=== PATIENT | female | born 1960 | race African-American/Black ===

== ENCOUNTER 2016-10-27 09:48 | Emergency (ER) | payer BC ==
[2016-10-27] MEDS ORDERED: Cephalexin 500 MG CAP ONE (10:22)
--- NOTE | 2016-10-27 10:32 | ERRECORD ---
[facility] EMERGENCY RECORD HPI RASH (10:21 LLDO) CHIEF COMPLAINT: Patient presents for evaluation of pruritis, Patient presents for evaluation of rash, Patient presents for evaluation of pt appears to have perhaps a dozen quarter sized insect bites on left lower leg and left arm. several are clearly infected. pt says these have been appearing for more than a week with one or more every morning. sleeps on a mat on the floor, on her left side. very pruritic. HISTORIAN: History provided by patient. LOCATION: Symptoms are generalized. QUALITY: Pain is dull in nature. SEVERITY: Maximum severity of symptoms moderate, Currently symptoms are mild. TIME COURSE: Sudden onset of symptoms, Symptoms are worsening, are constant. ASSOCIATED WITH: Associated with pain. EXACERBATED BY: Patient's condition exacerbated by scratching. RELIEVED BY: Patient's condition relieved by nothing. ROS CONSTITUTIONAL: Negative constitutional review of systems. (10:24 LLDO) EYES: Negative eye review of systems, Historian denies eye pain, denies eye redness, denies eye discharge. (10:28 LLDO) ENT: Negative ears, nose, throat review of systems, Historian denies epistaxis, denies rhinorrhea, denies sinus pain, denies sore throat. (10:28 LLDO) MUSCULOSKELETAL: Negative musculoskeletal review of systems, Historian denies arthralgias, denies back pain, denies injury, denies myalgias, denies neck pain. (10:28 LLDO) SKIN: Historian reports cellulitis, reports pruritis, reports rash, reports skin changes, reports skin lesions. IN HPI. (10:24 LLDO) NEUROLOGIC: Negative neurologic review of systems, Historian denies confusion, denies dizziness, denies focal weakness, denies mental status changes. (10:28 LLDO) HEMO/LYMPHATIC: Normal hematologic/lymphatic system review, Historian denies abnormal blood clotting, denies gum bleeding, denies petechiae. (10:28 LLDO) ALLERGIC/IMMUNOLOGIC: Normal allergy/immunologic system review, Historian denies eczema, denies environmental allergies, denies food allergies. (10:28 LLDO) PSYCHIATRIC: Negative psychiatric review of systems, Historian denies alcohol abuse, denies anxiety, denies depression, denies drug abuse, denies hallucinations. (10:28 LLDO) NOTES: All systems reviewed, negative except as described above. (10:24 LLDO) PAST MEDICAL HISTORY &a-1R&a+25V*p+0X*g0244U*c202B*c15G*c2P*p-0X&a-25V&a+1R Name: Ashlee Ulloa : 1960 F56 MedRec: [id number] AcctNum: [id number] Prepared: Sat Oct 27, 2016 10:30 by Interface Page 1 of 3 pMD [facility] EMERGENCY RECORD MEDICAL HISTORY: Notes: VERIFIED 10-27-16, Past medical history includes history of hypertension, Past medical history includes musculoskeletal disorder, chronic back pain, Notes: HTN, ASTHMA (JUST TAKES METOPROLOL PRN). (09:59 JPER) FEMALE SURGICAL HISTORY: VERIFIED 10-27-16, TUBAL LIGATION, RIGHT ROTATOR CUFF REPAIR. (09:59 JPER) PSYCHIATRIC HISTORY: Notes: DEPRESSION, Notes: depression. (09:59 JPER) SOCIAL HISTORY: Social History includes VERIFIED 10-27-16, Lives at home, with family, Patient drinks socially, rarely, Patient denies drug use, Patient currently uses tobacco, smokes cigarettes, Patient smokes 1/2 packs per day, Patient drinks socially, once a month, Patient denies drug use, Patient currently uses tobacco, smokes cigarettes, Occasional or some day smoker. (09:59 JPER) NOTES: Nursing records reviewed, Agree with nursing records, Medication list reviewed. (10:28 LLDO) KNOWN ALLERGIES codeine sulfate: Reaction: Rash, Severity: Moderate CURRENT MEDICATIONS (10:00 JPER) meTOPROLOL tartrate: TABLET : Strength - 50 mg : ORAL Patient Dose: 2 times a day. VITAL SIGNS (09:56 JPER) VITAL SIGNS: BP: 145/90, Pulse: 80, Resp: 18, Temp: 98.0 (Tympanic), O2 sat: 98 on Room Air, Time: 10/27/2016 09:56. PHYSICAL EXAM CONSTITUTIONAL: Patient afebrile, Pulse normal, Blood pressure, BP ELEVATED, Respiratory rate normal, Patient appears, uncomfortable, Patient appears in pain, in mild pain distress, Patient alert and oriented to person, place and time. (10:25 LLDO) HEAD: Head exam normal, Head exam included findings of head atraumatic, normocephalic. (10:28 LLDO) EYES: Eye exam normal, Eye exam included findings of eyelids normal to inspection, Pupils equally round and reactive to light, Extraocular muscles intact. (10:28 LLDO) ENT: ENT exam normal, Ear exam normal, Nose exam normal. (10:28 LLDO) NECK: Neck exam normal, Neck exam included findings of normal range of motion, Trachea midline, no meningeal signs, no tenderness. (10:28 LLDO) BACK: Back exam normal, Back exam included findings of normal inspection, range of motion normal. (10:28 LLDO) UPPER EXTREMITY: Upper extremity exam normal, Upper extremity exam included findings of inspection normal, Range of motion normal. &a-1R&a+25V*p+0X*w2454A*c202B*c15G*c2P*p-0X&a-25V&a+1R Name: Ashlee Ulloa : 1960 F56 MedRec: [id number] AcctNum: [id number] Prepared: Sat Oct 27, 2016 10:30 by Interface Page 2 of 3 pMD [facility] EMERGENCY RECORD (10:28 LLDO) LOWER EXTREMITY: Lower extremity exam normal, Lower extremity exam included findings of inspection normal, Range of motion normal. (10:28 LLDO) NEURO: Neuro exam normal, Neuro exam findings include patient oriented to person, place and time, Speech normal, [place] coma scale 15. (10:28 LLDO) SKIN: Rash present, SEE HPI. (10:25 LLDO) PSYCHIATRIC: Psychiatric exam normal, Psychiatric exam included findings of patient oriented to person place and time, Normal affect. (10:28 LLDO) MEDICATION ADMINISTRATION SUMMARY Drug Name: Cefanex, Dose Ordered: 500 mg, Route: Oral, Status: Given, Time: 10:18 10/27/2016, Detailed record available in Medication Service section. PROBLEM LIST No recorded problems DIAGNOSIS (10:11 LLDO) FINAL: PRIMARY: infected insect bite/sting. PRESCRIPTION Keflex: CAPSULE (HARD, SOFT, ETC.) : 500 mg : ORAL : Quantity: 1 Unit: cap(s) Route: ORAL Schedule: 3 times a day Dispense: 30 May substitute. Refills: No Refills . (10:13 LLDO) Ultram: TABLET : 50 mg : ORAL : Quantity: 1-2 Unit: tab(s) Route: ORAL Schedule: every 4 hours prn Dispense: 24 Unit: tab(s) May substitute. Refills: 1 POTENTIAL ALLERGY REACTION: 'codeine sulfate [codeine/codeine sulfate]' Override Rationale: Reviewed with patient, pt says can safely take this med. (10:13 LLDO) predniSONE oral: TABLET : 20 mg : ORAL : Quantity: * Unit: Route: ORAL Schedule: See Notes Dispense: 2O May substitute. Refills: No Refills . (10:15 LLDO) NOTES: 3 TABS PER DAY FOR 3 DAYS, THEN 2 TABS PER DAY FOR 3 DAYS, THEN ONE TAB PER DAY UNTIL GONE No Refills. (10:15 LLDO) DISPOSITION PATIENT: Disposition Type: Discharge, Disposition: *Discharge Home. (10:11 LLDO) Patient left the department. (10:28 [place]) Perez: [place]=JEANETTE Atwood, Isa LLDO=MD Nu, Mando &a-1R&a+25V*p+0X*p2223S*c202B*c15G*c2P*p-0X&a-25V&a+1R Name: Ashlee Ulloa : 1960 F56 MedRec: [id number] AcctNum: [id number] Prepared: Chris Oct 27, 2016 10:30 by Interface Page 3 of 3 pMD MTDD
--- NOTE | 2016-10-27 10:38 | PICIS ---
[facility] EMERGENCY RECORD TRIAGE (09:59 JPER) PATIENT: NAME: Ashlee Ulloa, AGE: 56, GENDER: female, : Sat 1960, TIME OF GREET: Sat Oct 27, 2016 09:49, PREFERRED LANGUAGE: Lao, RACE: Black or , ETHNICITY: Not or , ECODE BILLING MAP: [facility], SSN: [id number], Zip Code: [address], KG WEIGHT: 70.76, PHONE: , , , PERSON ID: [id number], PCP: DO Mehta Hillary. (09:59 JPER) COMPLAINT: RASH-LT ARM & LT LEG. (09:59 JPER) ADMISSION: URGENCY: 4 Non Urgent, ADMISSION SOURCE: Home, TRANSPORT: Walk-in, BED: ED -04. (09:59 JPER) ASSESSMENT: Assessment: RASH TO LEFT ARM AND LEG POSS BEDBUG. (09:59 JPER) PAIN: Location ITCHING, Pain is constant, No aggravating factors, No relieving factors. (09:59 JPER) IMMUNIZATIONS: Flu vaccine not up to date, Tetanus immunization up to date, Pneumococcal vaccine not up to date. (09:59 JPER) SIRS SCORING: Heart Rate 55-109 (0), Temp range 96.8-101.1 (0), respiratory rate 12-24 (0), Mental Status altered: no (0). (09:59 JPER) TRIAGE SCREENING: Patient denies suicidal ideation, Patient denies presence of domestic violence. (09:59 JPER) PROVIDERS: TRIAGE NURSE: Isa Atwood RN. (09:59 JPER) VITAL SIGNS: BP 145/90, Pulse 80, Resp 18, Temp 98.0, (Tympanic), O2 Sat 98, on Room Air, Time 10/27/2016 09:56. (09:56 JPER) PREVIOUS VISIT ALLERGIES: codeine sulfate. (09:59 JPER) KNOWN ALLERGIES codeine sulfate: Reaction: Rash, Severity: Moderate CURRENT MEDICATIONS (10:00 JPER) meTOPROLOL tartrate: TABLET : Strength - 50 mg : ORAL Patient Dose: 2 times a day. VITAL SIGNS (09:56 JPER) VITAL SIGNS: BP: 145/90, Pulse: 80, Resp: 18, Temp: 98.0 (Tympanic), O2 sat: 98 on Room Air, Time: 10/27/2016 09:56. NURSING ASSESSMENT: SKIN (10:14 JPER) CONSTITUTIONAL: Patient arrives ambulatory, Gait steady, History obtained from patient, Patient appears comfortable, Patient cooperative, Patient alert, Oriented to person, place and time, Skin warm, Skin dry, Skin normal in color, Mucous membranes pink, Mucous membranes moist, Patient is well-groomed, Patient complains of RASH. PAIN: ITCHING. SKIN: Skin assessment findings include skin warm, Skin dry, Skin normal in color, Inspection findings include lesion(s), to LEFT FOREARM AND LEFT LEG, Description: RED APPROX 1 &a-1R&a+25V*p+0X*v3413R*c202B*c15G*c2P*p-0X&a-25V&a+1R Name: Ashlee Ulloa Paula : 1960 F56 MedRec: [id number] AcctNum: [id number] Prepared: Sat Oct 27, 2016 10:36 by Interface Page 1 of 5 pMD [facility] EMERGENCY RECORD INCH SCATTERED. NOTES: Emotional support needed and given, Patient tolerated procedure well. SAFETY: Side rails up, Cart/Stretcher in lowest position, Family at bedside, Call light within reach, Hospital ID band on. NURSING PROCEDURE: DISCHARGE NOTE (10:25 JPER) DISCHARGE: Patient discharged to home, ambulating without assistance, driving self, unaccompanied, Summary of Care printed/ provided, Patient requested and was provided an electronic copy of Discharge Instructions, Transition record given to patient, Discharge instructions given to patient, Prescriptions given and instructions on side effects given, Above person(s) verbalized understanding of discharge instructions and follow-up care, Patient treated and evaluated by physician. BELONGINGS: Belongings remain with patient, Valuables remain with patient. NOTES: Emotional support needed and given, Patient tolerated procedure well. MEDICATION ADMINISTRATION SUMMARY Drug Name: Cefanex, Dose Ordered: 500 mg, Route: Oral, Status: Given, Time: 10:18 10/27/2016, Detailed record available in Medication Service section. MEDICATION SERVICE (10:18 LLDO) Cefanex: Order: Cefanex (cephalexin monohydrate) - Dose: 500 mg : Oral Schedule: Now Ordered by: Mando Judge MD Entered by: Mando Judge MD Sat Oct 27, 2016 10:09 Documented as given by: Isa Atwood RN Sat Oct 27, 2016 10:18 Patient, Medication, Dose, Route and Time verified prior to administration. Amount given: 500MG, Site: Medication administered P.O., Correct patient, time, route, dose and medication confirmed prior to administration, Patient advised of actions and side-effects prior to administration, Allergies confirmed and medications reviewed prior to administration, Administered by ROX REID, Patient in position of comfort, Side rails up, Cart in lowest position, Family at bedside. HPI RASH (10:21 LLDO) CHIEF COMPLAINT: Patient presents for evaluation of pruritis, Patient presents for evaluation of rash, Patient presents for evaluation of pt appears to have perhaps a dozen quarter sized insect bites on left lower leg and left arm. several are clearly infected. pt says these have been appearing for more than a week with one or more every morning. sleeps on a mat on the floor, on her left side. very pruritic. HISTORIAN: &a-1R&a+25V*p+0X*a5878T*c202B*c15G*c2P*p-0X&a-25V&a+1R Name: Ashlee Ulloa : 1960 F56 MedRec: [id number] AcctNum: [id number] Prepared: Sat Oct 27, 2016 10:36 by Interface Page 2 of 5 pMD [facility] EMERGENCY RECORD History provided by patient. LOCATION: Symptoms are generalized. QUALITY: Pain is dull in nature. SEVERITY: Maximum severity of symptoms moderate, Currently symptoms are mild. TIME COURSE: Sudden onset of symptoms, Symptoms are worsening, are constant. ASSOCIATED WITH: Associated with pain. EXACERBATED BY: Patient's condition exacerbated by scratching. RELIEVED BY: Patient's condition relieved by nothing. ROS CONSTITUTIONAL: Negative constitutional review of systems. (10:24 LLDO) EYES: Negative eye review of systems, Historian denies eye pain, denies eye redness, denies eye discharge. (10:28 LLDO) ENT: Negative ears, nose, throat review of systems, Historian denies epistaxis, denies rhinorrhea, denies sinus pain, denies sore throat. (10:28 LLDO) MUSCULOSKELETAL: Negative musculoskeletal review of systems, Historian denies arthralgias, denies back pain, denies injury, denies myalgias, denies neck pain. (10:28 LLDO) SKIN: Historian reports cellulitis, reports pruritis, reports rash, reports skin changes, reports skin lesions. IN HPI. (10:24 LLDO) NEUROLOGIC: Negative neurologic review of systems, Historian denies confusion, denies dizziness, denies focal weakness, denies mental status changes. (10:28 LLDO) HEMO/LYMPHATIC: Normal hematologic/lymphatic system review, Historian denies abnormal blood clotting, denies gum bleeding, denies petechiae. (10:28 LLDO) ALLERGIC/IMMUNOLOGIC: Normal allergy/immunologic system review, Historian denies eczema, denies environmental allergies, denies food allergies. (10:28 LLDO) PSYCHIATRIC: Negative psychiatric review of systems, Historian denies alcohol abuse, denies anxiety, denies depression, denies drug abuse, denies hallucinations. (10:28 LLDO) NOTES: All systems reviewed, negative except as described above. (10:24 LLDO) PAST MEDICAL HISTORY MEDICAL HISTORY: Notes: VERIFIED 2--17, Past medical history includes history of hypertension, Past medical history includes musculoskeletal disorder, chronic back pain, Notes: HTN, ASTHMA (JUST TAKES METOPROLOL PRN). (09:59 JPER) FEMALE SURGICAL HISTORY: VERIFIED 2--17, TUBAL LIGATION, RIGHT ROTATOR CUFF REPAIR. (09:59 JPER) PSYCHIATRIC HISTORY: Notes: DEPRESSION, Notes: depression. (09:59 JPER) &a-1R&a+25V*p+0X*s7343P*c202B*c15G*c2P*p-0X&a-25V&a+1R Name: Ashlee Ulloa : 1960 F56 MedRec: [id number] AcctNum: [id number] Prepared: Chris Oct 27, 2016 10:36 by Interface Page 3 of 5 pMD [facility] EMERGENCY RECORD SOCIAL HISTORY: Social History includes VERIFIED 2-4-17, Lives at home, with family, Patient drinks socially, rarely, Patient denies drug use, Patient currently uses tobacco, smokes cigarettes, Patient smokes 1/2 packs per day, Patient drinks socially, once a month, Patient denies drug use, Patient currently uses tobacco, smokes cigarettes, Occasional or some day smoker. (09:59 JPER) NOTES: Nursing records reviewed, Agree with nursing records, Medication list reviewed. (10:28 LLDO) PHYSICAL EXAM CONSTITUTIONAL: Patient afebrile, Pulse normal, Blood pressure, BP ELEVATED, Respiratory rate normal, Patient appears, uncomfortable, Patient appears in pain, in mild pain distress, Patient alert and oriented to person, place and time. (10:25 LLDO) HEAD: Head exam normal, Head exam included findings of head atraumatic, normocephalic. (10:28 LLDO) EYES: Eye exam normal, Eye exam included findings of eyelids normal to inspection, Pupils equally round and reactive to light, Extraocular muscles intact. (10:28 LLDO) ENT: ENT exam normal, Ear exam normal, Nose exam normal. (10:28 LLDO) NECK: Neck exam normal, Neck exam included findings of normal range of motion, Trachea midline, no meningeal signs, no tenderness. (10:28 LLDO) BACK: Back exam normal, Back exam included findings of normal inspection, range of motion normal. (10:28 LLDO) UPPER EXTREMITY: Upper extremity exam normal, Upper extremity exam included findings of inspection normal, Range of motion normal. (10:28 LLDO) LOWER EXTREMITY: Lower extremity exam normal, Lower extremity exam included findings of inspection normal, Range of motion normal. (10:28 LLDO) NEURO: Neuro exam normal, Neuro exam findings include patient oriented to person, place and time, Speech normal, [place] coma scale 15. (10:28 LLDO) SKIN: Rash present, SEE HPI. (10:25 LLDO) PSYCHIATRIC: Psychiatric exam normal, Psychiatric exam included findings of patient oriented to person place and time, Normal affect. (10:28 LLDO) EVENTS TRANSFER: Triage to Emergency Main ED -04. (Sat Oct 27, 2016 09:59 JPER) Removed from Emergency Main ED -04. (10:28 JPER) PROBLEM LIST No recorded problems &a-1R&a+25V*p+0X*c0483N*c202B*c15G*c2P*p-0X&a-25V&a+1R Name: Ashlee Ulloa : 1960 F56 MedRec: [id number] AcctNum: [id number] Prepared: Chris Oct 27, 2016 10:36 by Interface Page 4 of 5 pMD [facility] EMERGENCY RECORD DIAGNOSIS (10:11 LLDO) FINAL: PRIMARY: infected insect bite/sting. DISPOSITION PATIENT: Disposition Type: Discharge, Disposition: *Discharge Home. (10:11 LLDO) Patient left the department. (10:28 JPER) INSTRUCTION (10:14 LLDO) DISCHARGE: INSECT STING/BITE, INFECTED. FOLLOWUP: DO Mehta Hillary, [facility], [address] [place] [address], , Follow up with Primary Care Physician as needed. SPECIAL: Follow-up with your PCP. PRESCRIPTION Keflex: CAPSULE (HARD, SOFT, ETC.) : 500 mg : ORAL : Quantity: 1 Unit: cap(s) Route: ORAL Schedule: 3 times a day Dispense: 30 May substitute. Refills: No Refills . (10:13 LLDO) Ultram: TABLET : 50 mg : ORAL : Quantity: 1-2 Unit: tab(s) Route: ORAL Schedule: every 4 hours prn Dispense: 24 Unit: tab(s) May substitute. Refills: 1 POTENTIAL ALLERGY REACTION: 'codeine sulfate [codeine/codeine sulfate]' Override Rationale: Reviewed with patient, pt says can safely take this med. (10:13 LLDO) predniSONE oral: TABLET : 20 mg : ORAL : Quantity: * Unit: Route: ORAL Schedule: See Notes Dispense: 2O May substitute. Refills: No Refills . (10:15 LLDO) NOTES: 3 TABS PER DAY FOR 3 DAYS, THEN 2 TABS PER DAY FOR 3 DAYS, THEN ONE TAB PER DAY UNTIL GONE No Refills. (10:15 LLDO) ADMIN DIGITAL SIGNATURE: JEANETTE Atwood Jana. (10:28 JPER) MD Judge Lloyd. (10:29 LLDO) Perez: [place]PM[place]=JEANETTE Atwood Jana LLDO=MD Judge Lloyd &a-1R&a+25V*p+0X*m5598O*c202B*c15G*c2P*p-0X&a-25V&a+1R Name: Ashlee Ulloa : 1960 F56 MedRec: [id number] AcctNum: [id number] Prepared: [facility] Oct 27, 2016 10:36 by Interface Page 5 of 5 pMD [facility] MEDICATION RECONCILIATION You were seen in the Emergency Department on: SatOct 27, 2016 KNOWN ALLERGIES codeine sulfate: Reaction: Rash, Severity: Moderate MEDICATIONS GIVEN WHILE IN THE EMERGENCY DEPARTMENT Cefanex (cephalexin monohydrate) - Dose: 500 milligram(s) : Oral HOME MEDICATIONS CONTINUE PRESCRIBED meTOPROLOL tartrate : TABLET : Strength - 50 mg : ORAL Continue as prescribed Patient had been takin times a day. Notes from the emergency department Reviewed with family Reviewed with patient Reviewed with patient PRESCRIPTIONS (3) Printed (3) Keflex : CAPSULE (HARD, SOFT, ETC.) : 500 mg : ORAL Quantity: 1, Unit: cap(s), Route: ORAL, Schedule: 3 times a day, Dispense: 30 Ultram : TABLET : 50 mg : ORAL Quantity: 1-2, Unit: tab(s), Route: ORAL, Schedule: every 4 hours prn, Dispense: 24 Unit: tab(s) &a-1R&a+25V*p+0X*p5260S*c202B*c15G*c2P*p-0X&a-25V&a+1R Name: Ashlee Ulloa : 1960 F56 MedRec: [id number] AcctNum: [id number] Prepared: [facility] Oct 27, 2016 10:36 by Interface pMD MTDTyler
== END 2016-10-27 10:25 | disposition home or self-care (01) ==
LOC: MADERS 09:48
DX: T63.481A Toxic effect of venom of other arthropod, accidental (unintentional), initial encounter (principal); L08.9 Local infection of the skin and subcutaneous tissue, unspecified; I10 Essential (primary) hypertension; J45.909 Unspecified asthma, uncomplicated; F32.9 Major depressive disorder, single episode, unspecified; F17.210 Nicotine dependence, cigarettes, uncomplicated
CPT/HCPCS: 99282

== ENCOUNTER 2017-02-02 14:36 | Emergency (ER) | payer BC ==
[~2017-02-02 14:36] MED LIST: Lidocaine 1% 20 ML MDV ONE
[2017-02-02] MEDS ORDERED: cefTRIAXone\\ROCEPHIN 250 MG VIAL ONE (15:23)
[2017-02-02] MEDS ORDERED: Azithromycin 250 MG TAB ONE (15:23)
[2017-02-02 15:26] LABS: Clarity Hazy (Clear); Glucose, Urine (Dipstick) Negative (Negative); Leukocyte Large (Negative); Nitrite Negative (Negative); Protein, Urine (Dipstick) Negative (Neg-Trace); Urobilinogen 0.2 mg/dL (0.2-1.0); pH, Urine 5.5 (5.0-9.0)
[2017-02-02 15:27] LABS: Bacteria/HPF 4+ HPF (None Seen); Bilirubin Negative (Negative); Blood, Urine Small (Negative); Renal Epithelial 0-3 HPF (0-3); Transitional Epithelial 0-3 HPF (0-3); Trichomonas/HPF Rare HPF (None Seen); Yeast-All Forms 2+ HPF (None Seen)
== END 2017-02-02 15:45 | disposition home or self-care (01) ==
LOC: MADERS 14:36
DX: N39.0 Urinary tract infection, site not specified (principal); I10 Essential (primary) hypertension; G89.29 Other chronic pain; M54.9 Dorsalgia, unspecified; J45.909 Unspecified asthma, uncomplicated; F32.9 Major depressive disorder, single episode, unspecified; F17.210 Nicotine dependence, cigarettes, uncomplicated; Z79.899 Other long term (current) drug therapy
CPT/HCPCS: 81003; 81015; 87086; 96372; J0696; J2001

== ENCOUNTER 2017-04-26 11:54 | Outpatient (CLI) | payer BC ==
[2017-04-26 12:48] LABS: ALT (SGPT) 18 U/L (8-55); AST (SGOT) 17 U/L (5-34); Alkaline Phosphatase 82 U/L (40-150); Anion Gap 13 mmol/L (10-20); BUN (Urea Nitrogen) 9 mg/dL (9.8-20.1); Bilirubin, Total 0.4 mg/dL (0.2-1.2); Calc. Creatinine Clearance 0 mL/min (70-130); Calcium 10.5 mg/dL (7.8-10.44); Carbon Dioxide 26 mmol/L (22-29); Chloride 106 mmol/L (98-107); Cholesterol 188 mg/dl (< 200 Desired); Estimated GFR-MDRD 88; Glucose 83 mg/dL (70-105); HDL Cholesterol 63 mg/dL (>60 Neg Risk); LDL Cholesterol, Calculated 100 mg/dL; Sodium 141 mmol/L (136-145); Triglycerides 125 mg/dL (Less than 150)
[2017-04-26 14:45] LABS: Hemoglobin 15.6 g/dL (12.0-16.0); Mean Corpuscular HGB CONC 31.6 g/dL (32.0-36.0); Mean Corpuscular Hemoglobin 31.1 pg (27.0-31.0); Mean Corpuscular Volume 98.4 fl (81.0-99.0); Mean Platelet Volume 9.2 fL (7.4-10.4); Platelet Count 248 thou/uL (130-400); RBC Distribution Width 13.7 % (11.5-14.5); Red Blood Cell (RBC) Count 5.01 mill/uL (4.20-5.40); White Blood Cell (WBC) Count 7.5 thou/uL (4.8-10.8)
[2017-04-26 14:46] LABS: Anisocytosis SLIGHT = 6-15 cells (100X) (0-5/hpf); Band 2 % (5-11); Eosinophils 1 % (0-10); Lymphocytes 28 % (21-51); MDiff Complete? YES; Manual Diff?? YES; Monocytes 10 % (0-10); Neutrophil 59 % (42-75); PLT Morphology Comment Appears Adequate
[2017-04-26 17:18] LABS: HBCM Index 0.48 S/CO (0-0.79); HBSAg Index 0.27 S/CO (0-0.99); HIV (1/2) Antibody/Antigen Non-Reactive (NonReactive); HIV 1/2 INDEX 0.06 S/CO (<1.00); Hep A IgM AB Non-Reactive (NonReactive); Hep A IgM S/CO 0.14 S/CO (0-0.79); Hep B Surf Ag Non-Reactive S/CO (NonReactive); Hep C IgG Ab Non-Reactive (NonReactive); Hepatitis B Core IGM Abs Non-Reactive (NonReactive)
== END 2017-04-26 11:55 | disposition home or self-care (01) ==
LOC: MADLABBHPM 11:54
PROVIDERS: ATTEND Family Medicine
DX: Z01.419 Encounter for gynecological examination (general) (routine) without abnormal findings (principal)
CPT/HCPCS: 36415; 80053; 80061; 80074; 85025; 86592; 87086; 87389; 87480; 87491; 87510; 87591; 87660

== ENCOUNTER 2018-06-30 11:58 | Outpatient (CLI) | payer BC ==
[2018-07-02 14:19] LABS: Hemoglobin 16.2 g/dL (12.0-16.0); Mean Corpuscular HGB CONC 32.3 g/dL (32.0-36.0); Mean Corpuscular Hemoglobin 31.4 pg (27.0-31.0); Mean Corpuscular Volume 97.3 fL (78.0-98.0); Mean Platelet Volume 9.2 fL (7.4-10.4); Platelet Count 244 thou/uL (130-400); RBC Distribution Width 12.2 % (11.5-14.5); Red Blood Cell (RBC) Count 5.17 mill/uL (4.20-5.40); White Blood Cell (WBC) Count 6.1 thou/uL (4.8-10.8)
[2018-07-02 14:20] LABS: #Basophils 0.1 thou/uL (0.0-0.2); #Lymphocytes 1.9 thou/uL (1.20-3.40); #Monocytes 0.6 thou/uL (0.11-0.59); #Neutrophils 3.5 thou/uL (1.40-6.50); %Basophils 1.4 % (0.0-1.0); %Eosinophils 0.4 % (0.0-10.0); %Lymphocytes 30.5 % (21.0-51.0); %Monocytes 10.3 % (0.0-10.0); %Neutrophils 54.3 % (42.0-75.0)
[2018-07-02 14:22] LABS: BUN (Urea Nitrogen) 9 mg/dL (9.8-20.1); Calc. Creatinine Clearance 0 mL/min (70-130); Carbon Dioxide 27 mmol/L (22-29); Chloride 103 mmol/L (98-107); Estimated GFR-MDRD Greater than 90; Potassium 4.2 mmol/L (3.5-5.1); Sodium 141 mmol/L (136-145)
[2018-07-02 14:23] LABS: ALT (SGPT) 22 U/L (8-55); AST (SGOT) 24 U/L (5-34); Albumin 4.5 g/dL (3.5-5.0); Alkaline Phosphatase 75 U/L (40-150); Bilirubin, Total 0.7 mg/dL (0.2-1.2); Cholesterol 248 mg/dL (< 200 Desired); Globulin 3.1 g/dL (2.4-3.5); Glucose 84 mg/dL (70-105); Protein, Total 7.6 g/dL (6.0-8.3); Triglycerides 159 mg/dL (Less than 150)
[2018-07-02 14:24] LABS: HDL Cholesterol 72 mg/dL (>60 Neg Risk)
[2018-07-02 14:33] LABS: Cardiac Risk 3.4 (Less than 4.5); LDL Cholesterol, Calculated 144 mg/dL
[2018-07-02 14:35] LABS: Anion Gap 15 mmol/L (10-20)
[2018-07-02 14:38] LABS: Amphetamine Not Detected (NotDetected); Barbiturates Screen Not Detected (NotDetected); Benzodiazepine Screen Not Detected (NotDetected); Cocaine Metabolite Screen Not Detected (NotDetected); Medtox Control Line Valid? VALID (VALID); Methadone Not Detected (NotDetected); Methamphetamine Not Detected (NotDetected); Opiate Screen Not Detected (NotDetected); Oxycodone Screen Not Detected (NotDetected); Phencyclidine (PCP) Not Detected (NotDetected); Tricyclic Screen Not Detected (NotDetected)
[2018-07-03 09:31] LABS: THC/Cannabinoid Screen Detected (NotDetected)
== END 2018-06-30 11:59 | disposition home or self-care (01) ==
LOC: MADEKG 11:58
PROVIDERS: ATTEND Family Medicine
DX: R00.2 Palpitations (principal); I10 Essential (primary) hypertension
CPT/HCPCS: 36415; 80053; 80061; 80306; 84443; 85025; 93005; 93010

== ENCOUNTER 2018-08-04 14:45 | Outpatient (CLI) | payer BC ==
[2018-08-06 08:20] LABS: Ionized Calcium 5.8 mg/dL (4.5-5.6)
== END 2018-08-04 14:46 | disposition home or self-care (01) ==
LOC: MADLABBHPM 14:45
PROVIDERS: ATTEND Family Medicine
DX: E83.52 Hypercalcemia (principal)
CPT/HCPCS: 36415; 82306; 82330; 83970